=== PATIENT | female | born 1960 | race Hispanic/Latino ===

== ENCOUNTER 2016-04-21 10:33 | Outpatient (CLI) | payer OTHER ==
--- NOTE | 2016-04-22 14:52 | Mammography Report ---
BILATERAL DIGITAL SCREENING MAMMOGRAM WITH CAD: 04/21/16 10:33:00 CLINICAL: Routine screening.Breast cancer survivor status post left partial mastectomy and radiation therapy in 2003. COMPARISON:03/24/15 FINDINGS: The breasts are heterogeneously dense, which may obscure small masses. The left breast is smaller than the right with stable lower inner postsurgical scar. No mass, suspicious architectural distortion or suspicious calcifications. IMPRESSION: No mammographic evidence of malignancy. BI-RADS CATEGORY: 2 -- Benign RECOMMENDATION: Routine mammographic screening in one year. COMMENT: Patient follow-up letters are generated via our [employer] application.
== END 2016-04-21 10:34 | disposition home or self-care (01) ==
LOC: SPVWC 10:33
PROVIDERS: ATTEND Internal Medicine Hematology & Oncology
DX: Z12.31 Encounter for screening mammogram for malignant neoplasm of breast (principal)
CPT/HCPCS: 77067; G0202

== ENCOUNTER 2019-01-03 08:14 | Outpatient (CLI) | payer OTHER ==
--- NOTE | 2019-01-03 10:26 | Mammography Report ---
DIGITAL SCREENING MAMMOGRAM WITH CAD, 01/03/2019 INDICATION: Routine screening mammography. Breast cancer survivor status post left partial mastectomy and radiation therapy in 2004. TECHNIQUE: Digital bilateral 2D mammography was obtained in the craniocaudal and mediolateral obliq ue projections. This examination was interpreted with the benefit of Computer-Aided Detection analysi s. COMPARISON: 04/21/2016 FINDINGS: Breast Density: The breasts are heterogeneously dense, which may obscure small masses. There is no evidence of dominant mass, suspicious calcifications or architectural distortion in eithe r breast. Left inner posterior benign postsurgical scar. Stable moderate skin thickening of the left breast on the CC view. IMPRESSION: No mammographic evidence of malignancy. Follow up recommendation: Routine yearly BI-RADS Category 2: Benign. A "normal" or negative report should not discourage follow up or biopsy of a clinically significant f inding. A written summary of these findings will be mailed to the patient. The patient will be entered into a mammography reporting system which will generate a reminder letter for the patient's next appointmen t at the appropriate interval. The [employer] recommends yearly mammograms starting at age 40 and continuing as l dawson as a woman is in good health. Breast MRI is recommended for women with an approximate 20-25% or greater lifetime risk of breast cancer, including women with a strong family history of breast or ova jeffrey cancer or who have been treated for Hodgkin's disease. Signer Name: Peter Parmar MD Signed: 01/03/2019 10:22 AM Workstation Name: [id number]
== END 2019-01-03 08:15 | disposition home or self-care (01) ==
LOC: SPVWC 08:14
PROVIDERS: ATTEND Internal Medicine Hematology & Oncology
DX: Z12.31 Encounter for screening mammogram for malignant neoplasm of breast (principal)
CPT/HCPCS: 77067

== ENCOUNTER 2020-06-30 08:14 | Outpatient (CLI) | payer BC ==
--- NOTE | 2020-06-30 10:01 | Mammography Report ---
BILATERAL DIGITAL SCREENING MAMMOGRAM WITH CAD WITH TOMOSYNTHESIS HISTORY: Screening mammogram, history of left breast surgery. TECHNIQUE: Routine digital mammographic imaging performed. This examination was interpreted with madai medrano benefit of Computer-aided Detection analysis. Tomosynthesis images were acquired and reviewed. COMPARISON: 01/03/2019, 04/21/2016. FINDINGS: Breast Density: heterogeneously dense breast parenchymal pattern which somewhat lessens the sensitivi ty of the evaluation. Digital CC and MLO views demonstrate no mammographic evidence of malignancy. Stable architectural di stortion and skin retraction within the left medial breast at site of prior surgery. IMPRESSION: No mammographic evidence of malignancy. If the clinical examination remains stable, recommend bilate ral mammogram in approximately one year. BIRADS 2: Benign Finding(s). FURTHER INFORMATION: According to the [employer], yearly mammograms are recommend ed starting at age 40 and continuing as long as a woman is in good health. Clinical Breast Exams shou ld be part of a periodic health exam-about every 3 years for women in their 20s and 30s and every yea r for women 40 and over. Breast self exam is an option for women starting in their 20s. Any breast ch stan noted on a breast self exam should be reported promptly to the patient's healthcare provider. Br east MRI is recommended for women with an approximately 20-25% or greater lifetime risk of breast can cer, including women with a strong family history of breast or ovarian cancer and women who have been treated for Hodgkin's disease. A negative Mammography report should not discourage follow up or biopsy of a clinically significant f inding and/or abnormality. Dense breast tissue may obscure small neoplasms. The patient will be entered into a reminder system with a target due date for the next screening mamm ogram. Signer Name: Edgardo Stoll MD Signed: 06/30/2020 9:57 AM Workstation Name: [id number]
== END 2020-06-30 08:15 | disposition home or self-care (01) ==
LOC: SPVWC 08:14
DX: Z12.31 Encounter for screening mammogram for malignant neoplasm of breast (principal); N64.89 Other specified disorders of breast
CPT/HCPCS: 77063; 77067